=== PATIENT | female | born 1980 | race Caucasian/White ===

== ENCOUNTER 2022-08-08 15:42 | Emergency (ER) | payer OTHER ==
[~2022-08-08] VITALS: Ht 160 cm; Wt 54.0 kg
--- NOTE | 2022-08-08 15:55 | NUR ---
C/O HEAD AND UPPER BACK PAIN S/P "CLOSET DOOR FELL ON ME LAST NIGHT" PT DENIES LOC.
[2022-08-08] MEDS ORDERED: ACETAMINOPHEN ES 500 MG TABLET PO ONE (16:30)
[2022-08-08] MEDS ORDERED: ACETAMINOPHEN ES 500 MG TABLET ONE (17:07)
--- NOTE | 2022-08-08 18:38 | NUR ---
PATIENT SIGNED THE AMA BUT WOULD LIKE TO BE CALLED FOR CT RESULT. PATIENT # [phone] PARTNER # [phone]
--- NOTE | 2022-08-08 18:39 | NUR ---
Patient does not wish to proceed with medical care recommended by Dr. BAILEY. Patient given information related to possible complications, up to and including , which could occur as a result of leaving the hospital at this time. Patient verbalizes understanding of risks involved due to leaving against medical advice. Patient has signed AMA form.
--- NOTE | 2022-08-08 19:21 | NUR ---
THORACIC SPINE CT AND HEAD CT RESULT RELAYED TO PATIENT BY CALLING THE NUMBER PROVIDED TO US. NOTIFIED WELL
[2022-08-08 19:23] VITALS: BP 121/69
== END 2022-08-08 18:25 | disposition left against medical advice (07) ==
LOC: ER 15:56
DX: S00.93XA Contusion of unspecified part of head, initial encounter (principal); F41.9 Anxiety disorder, unspecified; X58.XXXA Exposure to other specified factors, initial encounter; Y93.89 Activity, other specified; Y92.89 Other specified places as the place of occurrence of the external cause; Y99.8 Other external cause status
CPT/HCPCS: 70450-TC; 72128-TC